=== PATIENT | male | born 1990 | race Caucasian/White ===

== ENCOUNTER 2017-05-08 17:49 | Emergency (ER) | payer SELFPAY ==
[~2017-05-08] VITALS: Ht 195.6 cm; Wt 148.0 kg
[~2017-05-08 17:49] MED LIST: RANI150 PO
[2017-05-08 18:01] VITALS: BP 180/90; PULSE 75; RESP 16; TEMP 98.2; O2SAT 97
[2017-05-08] MEDS ORDERED: PREV15CA15 PO (18:12)
[2017-05-08] MEDS ORDERED: SODIUM CHLOR 0.9% 1000 ML INJ 1,000 ML IV SCH (18:51)
--- NOTE | 2017-05-08 18:51 | PD ---
HPI Chief Complaint: Abdominal Pain Time Seen by Provider: 18:16 Travel History International Travel<30 days: No Contact w/Intl Traveler<30days: No Traveled to known affect area: No History of Present Illness HPI This patient complains of rectal bleeding and abdominal cramping. Duration is one day. He denies fever or vomiting. He had the same symptoms when he was seen here [address] scan revealed a colitis. However he never followed up for more specialized determination of the cause. He's done well in the meantime. No ill contacts. Symptoms severity is moderate. No alleviating factors. No exacerbating factors PFSH Past Medical History Arthritis: No Asthma: No Autoimmune Disease: No Anxiety: Yes (PANIC DISORDER) Depression: No Heart Rhythm Problems: No Cancer: No Cardiovascular Problems: No High Cholesterol: No Chemotherapy: No Chest Pain: No Congestive Heart Failure: No COPD: No Cerebrovascular Accident: No Diabetes: No Diminished Hearing: No Endocrine: No Gastrointestinal Disorders: Yes (H/O COLITIS) GERD: Yes Genitourinary: No Hiatal Hernia: No Immune Disorder: No Kidney Stones: No Musculoskeletal: Yes (BILATERAL SHOULDER DISLOCATED, GENETIC DISEASE, COLLEG. TISSUE DISEASE) Neurologic: No Psychiatric: No Reproductive: No Respiratory: No Migraines: No Radiation Therapy: No Renal Failure: No Seizures: No Sleep Apnea: No Thyroid Disease: No Ulcer: No Tetanus Vaccination: > 5 Years Influenza Vaccination: No Past Surgical History AICD: No Arteriovenous Shunt: No Ear Surgery: No Endocrine Surgery: No Genitourinary Surgery: No Gynecologic Surgery: No Insulin Pump: No Joint Replacement: No Oral Surgery: No Pacemaker: No Social History Alcohol Use: Yes (OCCAS) Tobacco Use: No Substance Use: No Allergies-Medications (Allergen,Severity, Reaction): Coded Allergies: No Known Allergies (Verified , 05/08/17) Reported Meds & Prescriptions Reported Meds & Active Scripts Active Reported Prevacid (Lansoprazole) 15 Mg Capdr 15 Mg PO DAILY PRN Review of Systems General / Constitutional: No: Fever Eyes: No: Visual changes HENT: No: Headaches Cardiovascular: No: Chest Pain or Discomfort Respiratory: No: Shortness of Breath Gastrointestinal: Positive: Abdominal Pain, Hematochezia Genitourinary: No: Dysuria Musculoskeletal: No: Pain Skin: No Rash Neurologic: No: Weakness Psychiatric: No: Depression Endocrine: No: Polydipsia Hematologic/Lymphatic: No: Easy Bruising Physical Exam Narrative GENERAL: Well-nourished, well-developed patient in no apparent distress. SKIN: Focused skin assessment reveals no rash and nodules. Skin is Warm and dry. HEAD: Atraumatic. Normocephalic. EYES: Pupils equal and round. No scleral icterus. No injection or drainage. ENT: No nasal bleeding or discharge. Mucous membranes pink and moist. NECK: Trachea midline. No JVD. CARDIOVASCULAR: Regular rate and rhythm. No murmur appreciated. RESPIRATORY: No accessory muscle use. Clear to auscultation. Breath sounds equal bilaterally. GASTROINTESTINAL: Abdomen soft, non-tender, nondistended. Hepatic and splenic margins not palpable. MUSCULOSKELETAL: No obvious deformities. No clubbing. No cyanosis. No edema. NEUROLOGICAL: Awake and alert. No obvious cranial nerve deficits. Motor grossly within normal limits. Normal speech. PSYCHIATRIC: Appropriate mood and affect; insight and judgment normal. Data Data Last Documented VS Vital Signs Date Time Temp Pulse Resp B/P (MAP) Pulse Ox O2 Delivery O2 Flow Rate FiO2 05/08/17 18:01 98.2 75 16 180/90 (120) 97 MDM Medical Decision Making Medical Screen Exam Complete: Yes Emergency Medical Condition: Yes Medical Record Reviewed: Yes Differential Diagnosis Infectious colitis, inflammatory colitis, gastroenteritis Narrative Course I have reviewed the patient's electronic medical record. Reviewed his visit from [address] scan findings of colitis IV placed. I gave him IV Zofran and a liter of normal saline IV bolus I've ordered lab studies Patient has normal vitals and a soft benign nontender abdomen I don't think emergent CT imaging is needed here today. However I'm seeing him at shift end and case will be checked out to Dr. Quick to assist with disposition. Diagnosis Primary Impression: Abdominal pain Qualified Codes: R10.84 - Generalized abdominal pain Additional Impression: Rectal bleeding Pipo Gant MD May 08, 2017 18:51
[2017-05-08] MEDS ORDERED: ONDANSETRON HCL 4 MG/2 ML VIAL IVP ONE (19:00)
[2017-05-08] MEDS ORDERED: SODIUM CHLORIDE 0.9% FLUSH 10 ML FLUSH IV FLUSH PRN (19:00)
[2017-05-08 19:04] LABS: AUTOMATED NEUTROPHIL # 5.6 TH/MM3 (1.8-7.7); BASOPHIL % 0.4 % (0.0-2.0); EOSINOPHIL # 0.1 TH/MM3 (0-0.4); EOSINOPHIL % 0.9 % (0.0-4.0); HEMATOCRIT 45.3 % (39.0-51.0); HEMO FLAGS DIFF FINAL; LYMPH % 19.4 % (9.0-44.0); LYMPHOCYTE # 1.6 TH/MM3 (1.0-4.8); MEAN CELL VOLUME 82.7 FL (80.0-100.0); MEAN CORPUSCULAR HEMOGLOBIN 27.1 PG (27.0-34.0); MEAN CORPUSCULAR HGB CONC 32.8 % (32.0-36.0); MONO % 9.7 % (0.0-8.0); NEUT % 69.6 % (16.0-70.0); PLATELET COUNT 347 TH/MM3 (150-450); RED BLOOD COUNT 5.47 MIL/MM3 (4.50-5.90); RED CELL DISTRIBUTION WIDTH 14.7 % (11.6-17.2); WHITE BLOOD COUNT 8.1 TH/MM3 (4.0-11.0)
[2017-05-08 19:14] LABS: CHLORIDE 104 MEQ/L (98-107); POTASSIUM 3.6 MEQ/L (3.5-5.1); SODIUM (NA) 139 MEQ/L (136-145)
[2017-05-08 19:17] LABS: ANION GAP 7 MEQ/L (5-15); BICARBONATE 28.1 MEQ/L (21.0-32.0); BLOOD UREA NITROGEN 10 MG/DL (7-18)
[2017-05-08 19:20] LABS: ALT (GPT) 25 U/L (12-78); AST (GOT) 16 U/L (15-37); GLOMERULAR FILTRATION RATE 92 ML/MIN (>89)
[2017-05-08 19:22] LABS: TOTAL BILIRUBIN ADULT 0.7 MG/DL (0.2-1.0)
[2017-05-08 19:23] LABS: ALKALINE PHOSPHATASE 68 U/L (45-117)
[2017-05-08] MEDS ORDERED: HYDR-3533 PO (19:53)
[2017-05-08] MEDS ORDERED: OMEP20TA PO (19:53)
[2017-05-08] MEDS ORDERED: PROM25TA10 PO (19:55)
--- NOTE | 2017-05-08 19:55 | PD ---
Physical Exam Time Seen by Provider: 19:[address] Hipolito Waller left this patient with me to check the laboratory and, if normal, discharge. Data Data Last Documented VS Vital Signs Date Time Temp Pulse Resp B/P (MAP) Pulse Ox O2 Delivery O2 Flow Rate FiO2 05/08/17 18:01 98.2 75 16 180/90 (120) 97 Orders Orders Complete Blood Count With Diff (05/08/17 18:51) Comprehensive Metabolic Panel (05/08/17 18:51) Lipase (05/08/17 18:51) Iv Access Insert/Monitor (05/08/17 18:51) NPO (05/08/17 18:51) Ondansetron Inj (Zofran Inj) (05/08/17 19:00) Sodium Chlor 0.9% 1000 Ml Inj (Ns 1000 M (05/08/17 18:51) Sodium Chloride 0.9% Flush (Ns Flush) (05/08/17 19:00) Labs Laboratory Tests Test 05/08/17 18:55 White Blood Count 8.1 TH/MM3 Red Blood Count 5.47 MIL/MM3 Hemoglobin 14.9 GM/DL Hematocrit 45.3 % Mean Corpuscular Volume 82.7 FL Mean Corpuscular Hemoglobin 27.1 PG Mean Corpuscular Hemoglobin Concent 32.8 % Red Cell Distribution Width 14.7 % Platelet Count 347 TH/MM3 Mean Platelet Volume 7.7 FL Neutrophils (%) (Auto) 69.6 % Lymphocytes (%) (Auto) 19.4 % Monocytes (%) (Auto) 9.7 % Eosinophils (%) (Auto) 0.9 % Basophils (%) (Auto) 0.4 % Neutrophils # (Auto) 5.6 TH/MM3 Lymphocytes # (Auto) 1.6 TH/MM3 Monocytes # (Auto) 0.8 TH/MM3 Eosinophils # (Auto) 0.1 TH/MM3 Basophils # (Auto) 0.0 TH/MM3 CBC Comment DIFF FINAL Differential Comment Blood Urea Nitrogen 10 MG/DL Creatinine 1.00 MG/DL Random Glucose 94 MG/DL Total Protein 7.4 GM/DL Albumin 3.9 GM/DL Calcium Level 9.0 MG/DL Alkaline Phosphatase 68 U/L Aspartate Amino Transf (AST/SGOT) 16 U/L Alanine Aminotransferase (ALT/SGPT) 25 U/L Total Bilirubin 0.7 MG/DL Sodium Level 139 MEQ/L Potassium Level 3.6 MEQ/L Chloride Level 104 MEQ/L Carbon Dioxide Level 28.1 MEQ/L Anion Gap 7 MEQ/L Estimat Glomerular Filtration Rate 92 ML/MIN Lipase 145 U/L [facility] Medical Record Reviewed: Yes Supervised Visit with KARINA: No Interpretation(s) The CBC is normal and the complete metabolic profile is normal. The lipase is normal. Differential Diagnosis Infectious colitis, inflammatory colitis, gastroenteritis abdominal pain etiology undetermined Diagnosis Primary Impression: Abdominal pain Qualified Codes: R10.84 - Generalized abdominal pain Additional Impression: Rectal bleeding Additional Instruction: As we discussed, follow-up with a director of manufacturing. Do not drink alcohol or drive on the Lortab pain medication. Med/Other Pt SpecificInfo: Prescription(s) given Scripts Promethazine (Phenergan) 25 Mg Tablet 25 MG PO Q6H Y for NAUSEA OR VOMITING, #30 TAB 0 Refills Prov: Rudy Quick MD 05/08/17 Omeprazole (Omeprazole) 20 Mg Tab 20 MG PO DAILY, #30 TAB 0 Refills Prov: Rudy Quick MD 05/08/17 Hydrocodone-Acetaminophen (Lortab) 5-325 Mg Tab 1-2 TAB PO Q6H Y for PAIN for 28 Days, TAB 0 Refills Prov: Rudy Quick MD 05/08/17 Disposition: 01 DISCHARGE HOME Condition: Stable Rudy Quick MD May 08, 2017 19:55
[2017-05-08] MEDS ORDERED: ONDANSETRON HCL 4 MG/2 ML VIAL IV ONE (20:00)
[2017-05-08 20:48] VITALS: BP 151/76
== END 2017-05-08 21:00 | disposition home or self-care (01) ==
LOC: PHED 17:49
DX: R10.84 Generalized abdominal pain (principal); K62.5 Hemorrhage of anus and rectum; Z87.19 Personal history of other diseases of the digestive system; K21.9 Gastro-esophageal reflux disease without esophagitis
CPT/HCPCS: 80053; 83690; 85025; 96361; 96374; 96376; 99284; J2405; J7030

== ENCOUNTER 2017-07-19 15:20 | Emergency (ER) | payer SELFPAY ==
[~2017-07-19 15:20] MED LIST changes: +HYDR-3533 PO; +OMEP20TA93 PO; +PREV15CA20 PO; +PROM25TA10 PO; -RANI150 PO
[2017-07-19 15:26] VITALS: BP 156/91; PULSE 66; RESP 20; TEMP 98.3; O2SAT 98
[2017-07-19] MEDS ORDERED: KETOROLAC TROMETHAMINE 30 MG/ML (IVP) VIAL IV PUSH ONE (16:00)
[2017-07-19] MEDS ORDERED: ONDANSETRON HCL 4 MG/2 ML VIAL IVP ONE (16:00)
[2017-07-19] MEDS ORDERED: SODIUM CHLORIDE 0.9% FLUSH 10 ML FLUSH IV FLUSH PRN (16:00)
--- NOTE | 2017-07-19 16:02 | PD ---
HPI Chief Complaint: GI Complaint Time Seen by Provider: 15:54 Travel History International Travel<30 days: No Contact w/Intl Traveler<30days: No Traveled to known affect area: No History of Present Illness HPI 26-year-old male with history of colitis him here for evaluation of abdominal pain and groin pain. The patient reports that for the last 1-2 months he has been having pain in his mid abdomen. Her last 36 hours the pain has migrated to his lower abdomen. He also reports pain in his penis and scrotum when he obtains an erection. Pain is described as sharp, intermittent, currently 6 out of 10, no modifying factors. He feels nauseous but has not vomited. No diarrhea, melena, or hematochezia. He has never seen a supervisor mixing for his colitis. No fevers or chills. He does complain of dysuria and polyuria. He is sexually active with one partner and does not use protection. PFSH Past Medical History Arthritis: No Asthma: No Autoimmune Disease: No Anxiety: Yes (PANIC DISORDER) Depression: No Heart Rhythm Problems: No Cancer: No Cardiovascular Problems: No High Cholesterol: No Chemotherapy: No Chest Pain: No Congestive Heart Failure: No COPD: No Cerebrovascular Accident: No Diabetes: No Diminished Hearing: No Endocrine: No Gastrointestinal Disorders: Yes (H/O COLITIS) GERD: Yes Genitourinary: No Hiatal Hernia: No Immune Disorder: No Kidney Stones: No Musculoskeletal: Yes (BILATERAL SHOULDER DISLOCATED, GENETIC DISEASE, COLLEG. TISSUE DISEASE) Neurologic: No Psychiatric: No Reproductive: No Respiratory: No Migraines: No Radiation Therapy: No Renal Failure: No Seizures: No Sleep Apnea: No Thyroid Disease: No Ulcer: No Past Surgical History AICD: No Arteriovenous Shunt: No Ear Surgery: No Endocrine Surgery: No Genitourinary Surgery: No Gynecologic Surgery: No Insulin Pump: No Joint Replacement: No Oral Surgery: No Pacemaker: No Social History Alcohol Use: Yes (daily) Tobacco Use: No Substance Use: Yes (daily marijuana) Allergies-Medications (Allergen,Severity, Reaction): Coded Allergies: No Known Allergies (Verified Adverse Reaction, Unknown, 07/19/17) Reported Meds & Prescriptions Reported Meds & Active Scripts Active No Active Prescriptions or Reported Medications Review of Systems Except as stated in HPI: all other systems reviewed are Neg Physical Exam Narrative GENERAL: Well-developed, well-nourished, comfortable, no apparent distress. SKIN: Focused skin assessment warm/dry. HEAD: Atraumatic. Normocephalic. EYES: Pupils equal and round. No scleral icterus. No injection or drainage. ENT: No nasal bleeding or discharge. Mucous membranes pink and moist. CARDIOVASCULAR: Regular rate and rhythm. No murmur appreciated. RESPIRATORY: No accessory muscle use. Clear to auscultation. Breath sounds equal bilaterally. GASTROINTESTINAL: Abdomen soft, nondistended. Mild lower abdominal/suprapubic tenderness without peritoneal signs. Normal bowel sounds. No hernias. : Normal exam without swelling, skin color changes, tenderness, or masses. Normal cremasterics reflex bilaterally. MUSCULOSKELETAL: No obvious deformities. No clubbing. No cyanosis. No edema. NEUROLOGICAL: Awake and alert. No obvious cranial nerve deficits. Motor grossly within normal limits. Normal speech. PSYCHIATRIC: Appropriate mood and affect; insight and judgment normal. Data Data Last Documented VS Vital Signs Date Time Temp Pulse Resp B/P (MAP) Pulse Ox O2 Delivery O2 Flow Rate FiO2 07/19/17 17:19 60 149/58 (88) 100 07/19/17 15:26 98.3 20 Orders Orders Complete Blood Count With Diff (07/19/17 15:58) Comprehensive Metabolic Panel (07/19/17 15:58) Urinalysis - C+S If Indicated (07/19/17 15:58) Ct Abd/Pel W Iv Contrast(Rout) (07/19/17 15:58) Iv Access Insert/Monitor (07/19/17 15:58) Ecg Monitoring (07/19/17 15:58) Oximetry (07/19/17 15:58) Ondansetron Inj (Zofran Inj) (07/19/17 16:00) Sodium Chloride 0.9% Flush (Ns Flush) (07/19/17 16:00) Ketorolac Inj (Toradol Inj) (07/19/17 16:00) Gc And Chlamydia Pcr (07/19/17 15:58) Us Testicles W Doppler (07/19/17 16:13) Iohexol 350 Inj (Omnipaque 350 Inj) (07/19/17 16:41) Labs Laboratory Tests Test 07/19/17 16:21 White Blood Count 7.1 TH/MM3 Red Blood Count 5.41 MIL/MM3 Hemoglobin 14.5 GM/DL Hematocrit 45.2 % Mean Corpuscular Volume 83.5 FL Mean Corpuscular Hemoglobin 26.8 PG Mean Corpuscular Hemoglobin Concent 32.1 % Red Cell Distribution Width 13.9 % Platelet Count 291 TH/MM3 Mean Platelet Volume 7.3 FL Neutrophils (%) (Auto) 53.2 % Lymphocytes (%) (Auto) 28.8 % Monocytes (%) (Auto) 9.6 % Eosinophils (%) (Auto) 7.7 % Basophils (%) (Auto) 0.7 % Neutrophils # (Auto) 3.8 TH/MM3 Lymphocytes # (Auto) 2.1 TH/MM3 Monocytes # (Auto) 0.7 TH/MM3 Eosinophils # (Auto) 0.5 TH/MM3 Basophils # (Auto) 0.0 TH/MM3 CBC Comment DIFF FINAL Differential Comment Urine Color YELLOW Urine Turbidity CLEAR Urine pH 6.0 Urine Specific [place] 1.025 Urine Protein NEG mg/dL Urine Glucose (UA) NEG mg/dL Urine Ketones TRACE mg/dL Urine Occult Blood NEG Urine Nitrite NEG Urine Bilirubin NEG Urine Leukocyte Esterase NEG Urine RBC 0-3 /hpf Urine WBC 0-2 /hpf Urine Squamous Epithelial Cells 0-5 /hpf Urine Mucus MOD /lpf Microscopic Urinalysis Comment CULT NOT INDICATED Blood Urea Nitrogen 10 MG/DL Creatinine 0.94 MG/DL Random Glucose 100 MG/DL Total Protein 7.1 GM/DL Albumin 3.9 GM/DL Calcium Level 8.7 MG/DL Alkaline Phosphatase 70 U/L Aspartate Amino Transf (AST/SGOT) 28 U/L Alanine Aminotransferase (ALT/SGPT) 43 U/L Total Bilirubin 0.9 MG/DL Sodium Level 138 MEQ/L Potassium Level 3.8 MEQ/L Chloride Level 105 MEQ/L Carbon Dioxide Level 24.8 MEQ/L Anion Gap 8 MEQ/L Estimat Glomerular Filtration Rate 99 ML/MIN MDM Medical Decision Making Medical Screen Exam Complete: Yes Emergency Medical Condition: Yes Differential Diagnosis Colitis, diverticulitis, appendicitis, UTI, cystitis, epididymitis, torsion unlikely Narrative Course Vital signs reviewed. CBC is unremarkable. CMP is unremarkable. UA shows trace ketones, moderate mucus, not suggestive of UTI. CT abdomen pelvis: CONCLUSION: No acute disease. Testicular ultrasound: CONCLUSION: 1. No testicular mass. No evidence for torsion. 2. Small right-sided hydrocele. Left-sided varicocele. 3. Benign-appearing nodule above right testicle. Patient was made aware of all findings, and provided a copy of his testicular ultrasound report. He is resting comfortably. His girlfriend is now present. They prefer to wait for his gonorrhea/chlamydia results before receiving any sort of treatment. Patient is stable for discharge home with further workup as an outpatient. I will given the name of the supervisor mixing, urologist, and a primary care physician office to follow-up with this week. He was informed on when to return to the emergency department. He verbalizes understanding and agreement with plan. Diagnosis Primary Impression: Abdominal pain Qualified Codes: R10.30 - Lower abdominal pain, unspecified Additional Impressions: Hydrocele Qualified Codes: N43.3 - Hydrocele, unspecified Varicocele Referrals: Kaylee Leon MD 3 days [employer] Connor Zuniga MD 3 days Urologist [facility] 3 days Primary care office Additional Instructions: Follow-up with a primary care physician this week. Follow-up with a urologist this week. Follow-up with a supervisor mixing this week. Return to the emergency department for worsening symptoms or any other concerns. Scripts No Active Prescriptions or Reported Meds Disposition: 01 DISCHARGE HOME Condition: Stable Jose Tenorio MD Jul 19, 2017 16:02
[2017-07-19 16:27] LABS: BLOOD, URINE NEG (NEG); GLUCOSE,URINE NEG (NEG); KETONE, URINE TRACE mg/dL (NEG); NITRITE,URINE NEG (NEG)
[2017-07-19 16:29] LABS: AUTOMATED NEUTROPHIL # 3.8 TH/MM3 (1.8-7.7); BASOPHIL % 0.7 % (0.0-2.0); EOSINOPHIL # 0.5 TH/MM3 (0-0.4); EOSINOPHIL % 7.7 % (0.0-4.0); HEMATOCRIT 45.2 % (39.0-51.0); HEMO FLAGS DIFF FINAL; LYMPH % 28.8 % (9.0-44.0); LYMPHOCYTE # 2.1 TH/MM3 (1.0-4.8); MEAN CELL VOLUME 83.5 FL (80.0-100.0); MEAN CORPUSCULAR HEMOGLOBIN 26.8 PG (27.0-34.0); MEAN CORPUSCULAR HGB CONC 32.1 % (32.0-36.0); MONO % 9.6 % (0.0-8.0); NEUT % 53.2 % (16.0-70.0); PLATELET COUNT 291 TH/MM3 (150-450); RED BLOOD COUNT 5.41 MIL/MM3 (4.50-5.90); RED CELL DISTRIBUTION WIDTH 13.9 % (11.6-17.2); WHITE BLOOD COUNT 7.1 TH/MM3 (4.0-11.0)
[2017-07-19 16:35] LABS: URINE COLOR YELLOW (YELLW/STRAW)
[2017-07-19 16:36] LABS: COMMENT (UR) CULT NOT INDICATED; CULTURE IF INDICATED CULT NOT INDICATED; MUCUS URINE MOD /lpf (OCC); RBC, URINE 0-3 /hpf (0-3); SQUAMOUS EPITHELIAL CELL URINE 0-5 /hpf (0-5); WBC, URINE 0-2 /hpf (0-5)
[2017-07-19 16:37] LABS: CHLORIDE 105 MEQ/L (98-107); POTASSIUM 3.8 MEQ/L (3.5-5.1); SODIUM (NA) 138 MEQ/L (136-145)
[2017-07-19 16:41] LABS: ANION GAP 8 MEQ/L (5-15); BICARBONATE 24.8 MEQ/L (21.0-32.0); BLOOD UREA NITROGEN 10 MG/DL (7-18)
[2017-07-19] MEDS ORDERED: IOHEXOL 350 MG/ML 10 ML VIAL (for RAD DIAG) IVCONTRAST ONE (16:41)
[2017-07-19 16:44] LABS: ALT (GPT) 43 U/L (12-78); AST (GOT) 28 U/L (15-37); GLOMERULAR FILTRATION RATE 99 ML/MIN (>89)
[2017-07-19 16:46] LABS: TOTAL BILIRUBIN ADULT 0.9 MG/DL (0.2-1.0)
[2017-07-19 16:47] LABS: ALKALINE PHOSPHATASE 70 U/L (45-117)
[2017-07-19 16:53] VITALS: O2SAT 98
--- NOTE | 2017-07-19 17:00 | RADRPT ---
EXAM DATE/TIME: 07/19/2017 16:31 [facility] COMPARISON: No previous studies available for comparison. INDICATIONS : Lower abdominal pain for one month. IV CONTRAST: 100 cc Omnipaque 350 (iohexol) IV ORAL CONTRAST: No oral contrast ingested. RADIATION DOSE: 22.73 CTDIvol (mGy) MEDICAL HISTORY : Gastroesophageal reflux disease. Colitis. SURGICAL HISTORY : None. ENCOUNTER: Initial ACUITY: 1 month PAIN SCALE: 7/10 LOCATION: pelvis TECHNIQUE: Volumetric scanning of the abdomen and pelvis was performed. Using automated exposure control and ad justment of the mA and/or kV according to patient size, radiation dose was kept as low as reasonably achievable to obtain optimal diagnostic quality images. DICOM format image data is available electro nically for review and comparison. FINDINGS: LOWER LUNGS: The visualized lower lungs are clear. LIVER: Homogeneous density without lesion. There is no dilation of the biliary tree. No calcified gallston es. SPLEEN: Normal size without lesion. PANCREAS: Within normal limits. KIDNEYS: Normal in size and shape. There is no mass, stone or hydronephrosis. ADRENAL GLANDS: Within normal limits. VASCULAR: There is no aortic aneurysm. BOWEL/MESENTERY: The stomach, small bowel, and colon demonstrate no acute abnormality. There is no free intraperitone al air or fluid. ABDOMINAL WALL: Within normal limits. RETROPERITONEUM: There is no lymphadenopathy. BLADDER: No wall thickening or mass. REPRODUCTIVE: Within normal limits. INGUINAL: There is no lymphadenopathy or hernia. MUSCULOSKELETAL: Within normal limits for patient age. CONCLUSION: No acute disease. Roddy Byrd MD on July 19, 2017 at 16:57 Board Certified Radiologist. This report was verified electronically.
[2017-07-19 17:19] VITALS: BP 149/58; PULSE 60; O2SAT 100
--- NOTE | 2017-07-19 18:23 | RADRPT ---
EXAM DATE/TIME: 07/19/2017 17:41 [facility] COMPARISON: No previous studies available for comparison. INDICATIONS : Testicular pain. MEDICAL HISTORY : Colitis. GERD. Dizziness. Bilateral shoulder dislocation. Panic disorder. Substance use. SURGICAL HISTORY : Right knee arthroscopy. ENCOUNTER: Initial ACUITY: 1 month PAIN SCORE: 5/10 LOCATION: Bilateral scrotum. MEASUREMENTS: RIGHT TESTICLE: 5.0 x 3.1 x 3.0cm LEFT TESTICLE: 4.0 x 3.3 x 5.1cm FINDINGS: No solid testicular masses. Positive blood flow to both testicles. Small soft tissue nodule measuring about 3 mm above right testicle, likely benign. Small right-sided hydrocele and left sided varicocel e. CONCLUSION: 1. No testicular mass. No evidence for torsion. 2. Small right-sided hydrocele. Left-sided varicocele. 3. Benign-appearing nodule above right testicle. Steven Enrique MD on July 19, 2017 at 18:20 Board Certified Radiologist. This report was verified electronically.
[2017-07-19 20:16] LABS: CHLAMYDIA PCR NOT DETECTED (NOT DETECT); NEISSERIA PCR NOT DETECTED (NOT DETECT)
== END 2017-07-19 18:48 | disposition home or self-care (01) ==
LOC: PHED 15:20
DX: R10.30 Lower abdominal pain, unspecified (principal); N43.3 Hydrocele, unspecified; I86.1 Scrotal varices
CPT/HCPCS: 74177; 76870; 80053; 81001; 85025; 87491; 87591; 93975; 96374; 96375; 99285; J1885; J2405; Q9967

== ENCOUNTER 2017-08-15 23:10 | Emergency (ER) | payer SELFPAY ==
[~2017-08-15] VITALS: Ht 195.6 cm; Wt 138.7 kg
[2017-08-15 23:18] VITALS: BP 145/86; PULSE 72; RESP 20; TEMP 98.4; O2SAT 100
[2017-08-15 23:26] VITALS: BP 145/86; PULSE 72; RESP 16; TEMP 98.4; O2SAT 100
[2017-08-15] MEDS ORDERED: KETOROLAC TROMETHAMINE 60 MG/2 ML (IM) VIAL IM ONE (23:45)
--- NOTE | 2017-08-16 00:04 | RADRPT ---
EXAM DATE/TIME: 08/15/2017 23:30 [facility] COMPARISON: No previous studies available for comparison. INDICATIONS : Cough with left side chest pain. MEDICAL HISTORY : None. SURGICAL HISTORY : None. ENCOUNTER: Initial ACUITY: 1 week PAIN SCORE: 3/10 LOCATION: Left chest FINDINGS: The cardiac silhouette is enlarged in transverse diameter. The lungs are free of acute parenchymal op acity. No effusions are identified. CONCLUSION: 1. Cardiomegaly. No acute pulmonary disease. Ethan Bedolla MD on August 16, 2017 at 0:02 Board Certified Radiologist. This report was verified electronically.
--- NOTE | 2017-08-16 00:43 | PD ---
HPI Chief Complaint: Respiratory Symptoms Time Seen by Provider: 23:24 Travel History International Travel<30 days: No Contact w/Intl Traveler<30days: No Traveled to known affect area: No History of Present Illness HPI Patient is a 26-year-old male who comes in complaining of left lateral rib pain for the past week as well as cough and cold symptoms. He says he has felt feverish, but he does not have a thermometer and has not taken his temperature. He is not taking anything for his symptoms. He did not get a flu shot this year. He denies shortness of breath. He denies nausea or vomiting. PFSH Past Medical History Arthritis: No Asthma: No Autoimmune Disease: No Anxiety: Yes (PANIC DISORDER) Depression: No Heart Rhythm Problems: No Cancer: No Cardiovascular Problems: No High Cholesterol: No Chemotherapy: No Chest Pain: No Congestive Heart Failure: No COPD: No Cerebrovascular Accident: No Diabetes: No Diminished Hearing: No Endocrine: No Gastrointestinal Disorders: Yes (H/O COLITIS) GERD: Yes Genitourinary: No Headaches: No Hiatal Hernia: No Heparin Induced Thrombocytopen: No Hypertension: No Immune Disorder: No Implanted Vascular Access Dvce: No Kidney Stones: No Musculoskeletal: Yes (BILATERAL SHOULDER DISLOCATED, GENETIC DISEASE, COLLEG. TISSUE DISEASE) Neurologic: No Psychiatric: No Reproductive: No Respiratory: No Migraines: No Radiation Therapy: No Renal Failure: No Seizures: No Sleep Apnea: No Thyroid Disease: No Ulcer: No Tetanus Vaccination: Unknown Influenza Vaccination: No Past Surgical History AICD: No Arteriovenous Shunt: No Ear Surgery: No Endocrine Surgery: No Genitourinary Surgery: No Gynecologic Surgery: No Insulin Pump: No Joint Replacement: No Oral Surgery: No Pacemaker: No Other Surgery: No Social History Alcohol Use: Yes (daily) Tobacco Use: No Substance Use: Yes (daily marijuana) Allergies-Medications (Allergen,Severity, Reaction): Coded Allergies: No Known Allergies (Verified Adverse Reaction, Unknown, 07/19/17) Reported Meds & Prescriptions Reported Meds & Active Scripts Active No Active Prescriptions or Reported Medications Review of Systems General / Constitutional: No: Fever, Chills HENT: No: Headaches, Lightheadedness Respiratory: Positive: Cough, No: Shortness of Breath Gastrointestinal: No: Nausea, Vomiting Genitourinary: No: Dysuria Musculoskeletal: No: Myalgias, Edema Skin: No Rash, No Change in Pigmentation Neurologic: No: Weakness, Dizziness Physical Exam Narrative GENERAL: Awake and alert, in no acute distress. SKIN: Focused skin assessment warm/dry. No rash. HEAD: Atraumatic. Normocephalic. EYES: Pupils equal and round. No scleral icterus. ENT: Mucous membranes pink and moist. CARDIOVASCULAR: Regular rate and rhythm. No murmur appreciated. No chest wall tenderness. RESPIRATORY: No accessory muscle use. Clear to auscultation. Breath sounds equal bilaterally. GASTROINTESTINAL: Abdomen soft, non-tender, nondistended. MUSCULOSKELETAL: No obvious deformities. No clubbing. No cyanosis. No edema. NEUROLOGICAL: Awake and alert. No obvious cranial nerve deficits. Motor grossly within normal limits. Normal speech. Data Data Last Documented VS Vital Signs Date Time Temp Pulse Resp B/P (MAP) Pulse Ox O2 Delivery O2 Flow Rate FiO2 08/15/17 23:26 98.4 72 16 145/86 (105) 100 Orders Orders Electrocardiogram (08/15/17 ) Chest, Pa & Lat (08/15/17 ) Influenzae A/B Antigen (08/15/17 23:28) Ketorolac Inj (Toradol Inj) (08/15/17 23:45) MDM Medical Decision Making Medical Screen Exam Complete: Yes Emergency Medical Condition: Yes Medical Record Reviewed: Yes Interpretation(s) ECG shows normal sinus rhythm at 68, no ST elevation or depression Differential Diagnosis Pneumonia versus URI versus influenza Narrative Course Patient is a 26-year-old male who comes in complaining of left lateral rib pain and cough. Exam shows no acute abnormalities. Flu swab is negative. Chest x- ray shows no acute abnormalities. ECG shows no signs of ischemia. Patient advised to take ibuprofen as needed for pain. Advised to use [id number] cough and cold medications. Advised follow-up with a primary care doctor. Advised to return to the ED as needed for any worsening symptoms. Diagnosis Primary Impression: Chest wall pain Additional Impression: Cough Referrals: [facility] call for appointment Patient Instructions: Acute Cough (ED), Chest Wall Pain (ED), General Instructions Additional Instructions: Take Tylenol or ibuprofen as needed for pain. Take [id number] cough and cold medication as needed. Follow-up with a primary care doctor. Return to the ED as needed for any worsening symptoms. Scripts No Active Prescriptions or Reported Meds Disposition: DISCHARGE HOME Condition: Stable Mariann Gross MD Aug 16, 2017 00:43
--- NOTE | 2017-08-16 15:12 | EKG ---
Date Performed: 08/15/2017 Time Performed: 23:39:26 PTAGE: 26 years EKG: Sinus rhythm WITH SINUS ARRHYTHMIA POSSIBLE RIGHT VENTRICULAR CONDUCTION DELAY BORDERLINE ECG PREVIOUS TRACING : 10/02/2015 12.18 Compared to prior tracing no significant change DOCTOR: Montrell Castorena Interpretating Date/Time 08/16/2017 15:11:14
== END 2017-08-16 00:58 | disposition home or self-care (01) ==
LOC: PHED 23:10
DX: R07.89 Other chest pain (principal); R05 Cough; R94.31 Abnormal electrocardiogram [ECG] [EKG]; F41.9 Anxiety disorder, unspecified; K21.9 Gastro-esophageal reflux disease without esophagitis; F12.90 Cannabis use, unspecified, uncomplicated
CPT/HCPCS: 71046; 87804; 93005; 96372; 99285; J1885